=== PATIENT | female | born 1945 | race Caucasian/White ===

== ENCOUNTER 2018-05-27 10:20 | Day surgery (SDC) | payer MEDICARE ==
[2018-05-27] MEDS ORDERED: HEPARIN SODIUM/PF 100UNIT/ML 5ML SYRINGE IV SCH (11:00)
--- NOTE | 2018-05-27 11:18 | NUR ---
FLUSH PORTACATH FLUSHED WITH HEPARIN 300 UNITS PER MD ORDERS.
--- NOTE | 2018-05-27 11:18 | NUR ---
flush portacatheter flushed per md orders using sterile technique, pt lali well. no adverse reactions noted. left upper chest port with no signs of infection .
== END 2018-05-27 11:20 | disposition home or self-care (01) ==
LOC: SDC 10:20
PROVIDERS: ATTEND Internal Medicine Hematology & Oncology
DX: Z95.828 Presence of other vascular implants and grafts (principal)
CPT/HCPCS: 96523; J1642